=== PATIENT | female | born 1960 | race Caucasian/White ===

== ENCOUNTER 2019-09-30 01:11 | Emergency (ER) | payer BC ==
[2019-09-30] MEDS ORDERED: Sodium Chloride 0.9% 2.5 ML Syringe FLUSH PRN ×2 (01:53)
[2019-09-30] MEDS ORDERED: Sodium Chloride 0.9% 1,000 ML IV ONE (01:53)
[2019-09-30] MEDS ORDERED: Ondansetron 4 MG/2 ML SDV IVPUSH ONE (01:53)
[2019-09-30] MEDS ORDERED: Famotidine 20 MG/2 ML SDV IVPUSH ONE (01:54)
--- NOTE | 2019-09-30 01:55 | EDM.PDOC ---
ED HPI GENERAL MEDICAL PROBLEM - General Chief Complaint: Behavioral/Psych Stated Complaint: NAUSEA, ANXIETY Time Seen by Provider: 09/30/19 01:35 - History of Present Illness INITIAL COMMENTS - FREE TEXT/NARRATIVE: History of present illness: [Patient presents to the ED and states "I feel like hammered dog shit "] she elaborates on this by stating that this evening she has had some feelings of flushing nausea she denies any pain anywhere although she had a headache earlier today that had resolved prior to the symptoms she denies any fever but feels flushed she denies any pain she has had some diarrhea but that is chronic she denies any dysuria no cough or trouble breathing no exposures no foreign travel nothing seems to make this better or worse she took an aspirin earlier it seemed to help with the flushing feeling. Review of systems: As per history of present illness and below otherwise all systems reviewed and negative. Past medical history: As per history of present illness and as reviewed below otherwise noncontributory. Surgical history: As per history of present illness and as reviewed below otherwise noncontributory. Social history: No reported history of drug or alcohol abuse. Family history: As per history of present illness and as reviewed below otherwise noncontributory. Physical exam: HEENT: Atraumatic, normocephalic, pupils reactive, negative for conjunctival pallor or scleral icterus, mucous membranes moist, throat clear, neck supple, nontender, trachea midline. Lungs: Clear to auscultation, breath sounds equal bilaterally, chest nontender. Heart: S1S2, regular, negative for clicks, rubs, or JVD. Abdomen: Soft, nondistended, nontender. Negative for masses or hepatosplenomegaly. Negative for costovertebral tenderness. Pelvis: Stable nontender. Genitourinary: Deferred. Rectal: Deferred. Extremities: Atraumatic, negative for cords or calf pain. Neurovascular unremarkable. Neuro: Awake, alert, oriented. Cranial nerves II through XII unremarkable. Cerebellum unremarkable. Motor and sensory unremarkable throughout. Exam nonfocal. Diagnostics: [] Therapeutics: [] Impression: [] Plan: Labs and urine reassess medicine for nausea [] Definitive disposition and diagnosis as appropriate pending reevaluation and review of above. - Related Data Allergies Allergy/AdvReac Type Severity Reaction Status Date / Time Sulfa (Sulfonamide Allergy Chest Pain Verified 09/30/19 01:43 Antibiotics) Home Meds: Home Meds Ondansetron [Zofran ODT] 4 mg PO Q6H PRN 5 Days #12 tab.dis 09/30/19 [Rx] Past Medical History Cardiovascular History: Reports: Hypertension Other Cardiovascular History: previous hx of HTN with treatment, but states her doctor took her off her medications for it. Gastrointestinal History: Reports: Inflammatory Bowel Disease Musculoskeletal History: Reports: Fibromyalgia Neurological History: Reports: Migraines Psychiatric History: Reports: Anxiety - Infectious Disease History Infectious Disease History: Reports: Chicken Pox, Measles Social & Family History - Tobacco Use Smoking Status *Q: Never Smoker - Recreational Drug Use Recreational Drug Use: Yes Recreational Drug Type: Reports: Marijuana/Hashish Recreational Drug Use Frequency: Weekly ED ROS GENERAL - Review of Systems Review Of Systems: See Below ED EXAM, GENERAL - Physical Exam Exam: See Below Course - Vital Signs Text/Narrative:: Patient is reassessed her lab studies are normal vital signs are normal discharge her home follow-up with primary care I prescribed her Zofran for her nausea. Last Recorded V/S: Last Vital Signs Temp 35.7 C L 09/30/19 01:40 Pulse 78 09/30/19 01:40 Resp 18 09/30/19 01:40 BP 160/89 H 09/30/19 01:40 Pulse Ox 97 09/30/19 01:40 - Orders/Labs/Meds Orders: Active Orders 24 hr Category Date Time Status Sodium Chloride 0.9% [Saline Flush] Med 09/30/19 01:53 Active 2.5 ml FLUSH ASDIRECTED PRN Sodium Chloride 0.9% [Saline Flush] Med 09/30/19 01:53 Active 2.5 ml FLUSH ASDIRECTED PRN Saline Lock Insert [OM.PC] Stat Oth 09/30/19 01:53 Ordered Medication Orders Sodium Chloride (Saline Flush) 2.5 ml FLUSH ASDIRECTED PRN PRN Reason: Keep Vein Open Sodium Chloride (Saline Flush) 2.5 ml FLUSH ASDIRECTED PRN PRN Reason: Keep Vein Open Labs: Laboratory Tests 09/30/19 09/30/19 09/30/19 Range/Units 02:00 02:00 02:50 WBC 9.64 (4.0-11.0) K/uL RBC 5.25 (4.30-5.90) M/uL Hgb 15.2 (12.0-16.0) g/dL Hct 44.7 (36.0-46.0) % MCV 85.1 (80.0-98.0) fL MCH 29.0 (27.0-32.0) pg MCHC 34.0 (31.0-37.0) g/dL RDW Std Deviation 40.8 (28.0-62.0) fl RDW Coeff of William 13 (11.0-15.0) % Plt Count 256 (150-400) K/uL MPV 9.00 (7.40-12.00) fL Neut % (Auto) 68.6 (48.0-80.0) % Lymph % (Auto) 24.4 (16.0-40.0) % [place] % (Auto) 6.1 (0.0-15.0) % Eos % (Auto) 0.7 (0.0-7.0) % Baso % (Auto) 0.2 (0.0-1.5) % Neut # (Auto) 6.6 H (1.4-5.7) K/uL Lymph # (Auto) 2.4 (0.6-2.4) K/uL [place] # (Auto) 0.6 (0.0-0.8) K/uL Eos # (Auto) 0.1 (0.0-0.7) K/uL Baso # (Auto) 0.0 (0.0-0.1) K/uL Nucleated RBC % 0.0 /100WBC Nucleated RBCs # 0 K/uL Sodium 139 (136-145) mmol/L Potassium 3.4 L (3.5-5.1) mmol/L Chloride 102 (98-107) mmol/L Carbon Dioxide 24.1 (21.0-32.0) mmol/L BUN 12 (7.0-18.0) mg/dL Creatinine 1.0 (0.6-1.0) mg/dL Est Cr Clr Drug Dosing 58.18 mL/min Estimated GFR (MDRD) 56.6 ml/min Glucose 121 H (74-106) mg/dL Calcium 9.1 (8.5-10.1) mg/dL Total Bilirubin 0.6 (0.2-1.0) mg/dL AST 24 (15-37) IU/L ALT 33 (14-63) IU/L Alkaline Phosphatase 81 (46-116) U/L Total Protein 7.8 (6.4-8.2) g/dL Albumin 4.5 (3.4-5.0) g/dL Globulin 3.3 (2.6-4.0) g/dL Albumin/Globulin Ratio 1.4 (0.9-1.6) Urine Color YELLOW Urine Appearance SLT CLOUDY Urine pH 5.5 (5.0-8.0) Ur Specific [place] 1.015 (1.001-1.035) Urine Protein NEGATIVE (NEGATIVE) mg/dL Urine Glucose (UA) NEGATIVE (NEGATIVE) mg/dL Urine Ketones NEGATIVE (NEGATIVE) mg/dL Urine Occult Blood TRACE-LYSED H (NEGATIVE) Urine Nitrite NEGATIVE (NEGATIVE) Urine Bilirubin NEGATIVE (NEGATIVE) Urine Urobilinogen 0.2 (<2.0) EU/dL Ur Leukocyte Esterase TRACE H (NEGATIVE) Urine RBC 1-3 (0-2/HPF) Urine WBC 1-3 (0-5/HPF) Ur Epithelial Cells FEW (NONE-FEW) Urine Bacteria RARE (NEGATIVE) Meds: Medications Generic Name Dose Route Start Last Admin Trade Name Freq PRN Reason Stop Dose Admin Sodium Chloride 2.5 ml 09/30/19 01:53 Saline Flush FLUSH ASDIRECTED PRN Keep Vein Open Sodium Chloride 2.5 ml 09/30/19 01:53 Saline Flush FLUSH ASDIRECTED PRN Keep Vein Open Discontinued Medications Generic Name Dose Route Start Last Admin Trade Name Freq PRN Reason Stop Dose Admin Famotidine 20 mg 09/30/19 01:54 09/30/19 02:01 Pepcid IVPUSH 09/30/19 01:55 20 mg ONETIME ONE Administration Sodium Chloride 1,000 mls @ 999 mls/hr 09/30/19 01:53 09/30/19 02:01 Normal Saline IV 09/30/19 02:53 999 mls/hr BOLUS ONE Administration Ondansetron HCl 4 mg 09/30/19 01:53 09/30/19 02:01 Zofran IVPUSH 09/30/19 01:54 4 mg ONETIME ONE Administration Departure - Departure Time of Disposition: 03:20 Disposition: Home, Self-Care 01 Condition: Good Clinical Impression: Nausea - Discharge Information *PRESCRIPTION DRUG MONITORING PROGRAM REVIEWED*: Not Applicable *COPY OF PRESCRIPTION DRUG MONITORING REPORT IN PATIENT JAYRO: Not Applicable Prescriptions: Ondansetron [Zofran ODT] 4 mg PO Q6H PRN 5 Days #12 tab.dis PRN Reason: Nausea/Vomiting Instructions: Nausea and Vomiting, Adult Referrals: PCP,None [Primary Care Provider] - Forms: ED Department Discharge Additional Instructions: The following information is given to patients seen in the emergency department who are being discharged to home. This information is to outline your options for follow-up care. We provide all patients seen in our emergency department with a follow-up referral. The need for follow-up, as well as the timing and circumstances, are variable depending upon the specifics of your emergency department visit. If you don't have a primary care physician on staff, we will provide you with a referral. We always advise you to contact your personal physician following an emergency department visit to inform them of the circumstance of the visit and for follow-up with them and/or the need for any referrals to a consulting specialist. The emergency department will also refer you to a specialist when appropriate. This referral assures that you have the opportunity for follow-up care with a specialist. All of these measure are taken in an effort to provide you with optimal care, which includes your follow-up. Under all circumstances we always encourage you to contact your private physician who remains a resource for coordinating your care. When calling for follow-up care, please make the office aware that this follow-up is from your recent emergency room visit. If for any reason you are refused follow-up, please contact the [facility] Emergency Department at and asked to speak to the emergency department charge nurse. [facility] [address] [place] [id number] [facility] [address] [place] [id number] Sepsis Event Note - Evaluation Sepsis Screening Result: No Definite Risk - Focused Exam Vital Signs: Vital Signs Temp Pulse Resp BP Pulse Ox 09/30/19 01:40 35.7 C L 78 18 160/89 H 97 Date Exam was Performed: 09/30/19 Time Exam was Performed: 03:19 - My Orders Last 24 Hours: My Active Orders 09/30/19 01:53 Sodium Chloride 0.9% [Saline Flush] 2.5 ml FLUSH ASDIRECTED PRN Sodium Chloride 0.9% [Saline Flush] 2.5 ml FLUSH ASDIRECTED PRN Saline Lock Insert [OM.PC] Stat - Assessment/Plan Last 24 Hours: My Active Orders 09/30/19 01:53 Sodium Chloride 0.9% [Saline Flush] 2.5 ml FLUSH ASDIRECTED PRN Sodium Chloride 0.9% [Saline Flush] 2.5 ml FLUSH ASDIRECTED PRN Saline Lock Insert [OM.PC] Stat
[2019-09-30 02:24] LABS: CARBON DIOXIDE,CO2 24.1 mmol/L (21.0-32.0); POTASSIUM,K 3.4 mmol/L (3.5-5.1)
[2019-09-30] MEDS ORDERED: Prochlorperazine 10 MG Tab PO ONE (03:24)
== END 2019-09-30 03:36 | disposition home or self-care (01) ==
LOC: MW.ED 01:11
DX: R11.0 Nausea (principal); I10 Essential (primary) hypertension; Z88.2 Allergy status to sulfonamides
CPT/HCPCS: 36415; 80053; 81001; 85025; 96361; 96374; 96375; 99283; A9270; J2405; J7030; S0028; 99282; J3490; Q0164